=== PATIENT | female | born 1995 | race Two or more races ===

== ENCOUNTER 2022-11-30 08:24 | Outpatient (CLI) | payer OTHER | END 2022-11-30 08:28 | disposition home or self-care (01) | LOC: SONOGRAMA 08:24 | PROVIDERS: ATTEND Pathology Anatomic Pathology | DX: E04.2 Nontoxic multinodular goiter (principal); E07.9 Disorder of thyroid, unspecified ==

== ENCOUNTER 2023-02-01 06:42 | Inpatient (IN) | payer OTHER ==
[~2023-02-01] VITALS: Ht 152.4 cm; Wt 99.8 kg
[~2023-02-01 06:42] MED LIST: MULTI VITAMIN1 EACH PO
[2023-02-01] MEDS ORDERED: ATORVASTATIN CA40 MG (15:05)
== END 2023-02-02 12:42 | disposition home or self-care (01) | DRG 627 ==
LOC: CIR.AMB 06:42 → SURG 07:00 → EDSTATUS 07:00 → CIR.AMB 11:00 → O/R 12:37 → SURH 13:01
PROVIDERS: ADMIT Otolaryngology; ATTEND Otolaryngology
PROC: 0GTH0ZZ Resection of Right Thyroid Gland Lobe, Open Approach (ICD-10-PCS; principal; 2023-02-01 11:00)
DX: C73 Malignant neoplasm of thyroid gland (principal); Z20.822 Contact with and (suspected) exposure to COVID-19

== ENCOUNTER 2023-02-08 07:06 | Emergency (ER) | payer OTHER ==
[~2023-02-08] VITALS: Ht 152.4 cm; Wt 99.8 kg
[~2023-02-08 07:06] MED LIST changes: +ATORVASTATIN CA40 MG
== END 2023-02-08 10:06 ==
LOC: ER 07:06
DX: Z98.890 Other specified postprocedural states (principal); Z88.8 Allergy status to other drugs, medicaments and biological substances

== ENCOUNTER 2023-02-17 04:16 | Emergency (ER) | payer OTHER ==
[~2023-02-17] VITALS: Ht 152.4 cm; Wt 99.8 kg
[2023-02-17] MEDS ORDERED: BENADRYL25 MG PO (06:18)
[2023-02-17] MEDS ORDERED: MEDROL8 MG PO (06:18)
[2023-02-17] MEDS ORDERED: PEPCID40 MG PO (06:18)
== END 2023-02-17 06:21 ==
LOC: ER 04:16
DX: T36.0X5A Adverse effect of penicillins, initial encounter (principal); Y92.9 Unspecified place or not applicable; Z88.8 Allergy status to other drugs, medicaments and biological substances